=== PATIENT | female | born 1985 | race Caucasian/White ===

== ENCOUNTER 2021-05-16 15:53 | Emergency (ER) | payer OTHER ==
[2021-05-16 17:58] LABS: HEMOGLOBIN 15.7 gm/dl (12.3-15.3); RED BLOOD COUNT 4.96 M/UL (4.00-5.10); WHITE BLOOD COUNT 6.3 K/UL (4.5-11.0)
== END 2021-05-16 18:50 | disposition home or self-care (01) ==
LOC: ER1 15:53
PROVIDERS: Physician Assistant Medical
DX: R07.89 Other chest pain (principal); Z90.49 Acquired absence of other specified parts of digestive tract; Z90.89 Acquired absence of other organs
CPT/HCPCS: 71045; 80053; 82550; 82553; 83874; 84484; 84702; 85025; 93005; 99285